=== PATIENT | male | born 1960 | race Caucasian/White ===

== ENCOUNTER 2022-11-22 09:37 | Outpatient (CLI) | payer OTHER | END 2022-11-22 09:38 | disposition home or self-care (01) | LOC: LABBT 09:37 | PROVIDERS: ATTEND Orthopaedic Surgery | DX: Z01.818 Encounter for other preprocedural examination (principal); M17.0 Bilateral primary osteoarthritis of knee | CPT/HCPCS: 71046; 93005; 93010 ==

== ENCOUNTER 2022-11-27 07:05 | Observation (INO) | payer OTHER ==
[2022-11-22 10:48] VITALS: BMI 37.3
[2022-11-22 11:46] LABS: Bilirubin Neg (Negative); Blood, Urine Negative (Negative); Clarity Clear (Clear); Glucose, Urine (Dipstick) Normal (Negative); Ketone, Urine Negative (Negative); Leukocyte Negative (Negative); Nitrite Negative (Negative); Protein, Urine (Dipstick) 30 mg/dl (Neg-Trace); Specific Gravity, Urine 1.015 (1.005-1.030); Urobilinogen Normal mg/dL (Less than 2)
[2022-11-22 12:06] LABS: #Basophils 0.1 10x3/uL (0.0-0.2); #Eosinphils 0.2 10x3/uL (0.0-0.5); #Monocytes 0.8 10x3/uL (0.0-1.1); #Neutrophils 5.9 10x3/uL (1.5-8.4); %Basophils 0.8 % (0.0-2.0); %Eosinophils 2.3 % (0.0-6.0); %Lymphocytes 22.4 % (18.0-47.0); %Monocytes 8.9 % (0.0-10.0); Hematocrit 39.4 % (38.8-50.0); Hemoglobin 13.1 g/dL (13.5-17.5); Mean Corpuscular HGB CONC 33.2 g/dL (32.0-36.0); Mean Corpuscular Hemoglobin 29.7 pg (27.0-33.0); Mean Corpuscular Volume 89.3 fl (81.2-95.1); Mean Platelet Volume 9.7 fl (7.4-10.4); Platelet Count 313 10x3/uL (150-450); RBC Distribution Width 12.7 % (11.5-14.5); Red Blood Cell (RBC) Count 4.41 10x6/uL (4.32-5.72); White Blood Cell (WBC) Count 9.1 10x3/uL (3.5-10.5)
[2022-11-22 12:20] LABS: Anion Gap 16 mmol/L (10-20); BUN (Urea Nitrogen) 18 mg/dL (8.4-25.7); Calc. Creatinine Clearance 0 mL/min (70-130); Calcium 9.5 mg/dL (7.8-10.44); Carbon Dioxide 24 mmol/L (23-31); Chloride 104 mmol/L (98-107); Estimated GFR 96; Glucose 97 mg/dL (80-115); Potassium 4.4 mmol/L (3.5-5.1); Sodium 140 mmol/L (136-145)
[2022-11-22 12:53] LABS: Prothrombin Time 10.4 sec (9.5-12.1)
[2022-11-27] MEDS ORDERED: fentaNYL 50 mcg/mL 1 mL Vial ONE ×5 (07:52→12:35)
[2022-11-27] MEDS ORDERED: Bupivacaine PF 0.5% 30 ML VIAL ONE ×2 (07:52→09:15)
[2022-11-27] MEDS ORDERED: Midazolam HCl 2 mg/2 ml Vial ONE (07:52)
[2022-11-27] MEDS ORDERED: Tranexamic Acid 1,000 MG/10 ML VIAL ONE (08:04)
[2022-11-27] MEDS ORDERED: Sodium Chloride 0.9% 100 ML ONE ×2 (08:04→09:31)
[2022-11-27] MEDS ORDERED: VANCOMYCIN 2 GRAM/500 ML BAG 2 GM in Premix Bag 1 BAG IVPB SCH (08:15)
[2022-11-27] MEDS ORDERED: Dexamethasone 20 MG/5 ML VIAL ONE (09:00)
[2022-11-27] MEDS ORDERED: Lidocaine 1% PF 5 ML VIAL ONE (09:00)
[2022-11-27] MEDS ORDERED: Bupivacaine HCl 0.5%/Epinephrine 1:200,000/PF 30 ml Vial ONE (09:00)
[2022-11-27] MEDS ORDERED: PROPOFOL 200 MG/20 ML VIAL ONE (09:00)
[2022-11-27] MEDS ORDERED: Ondansetron PF 4 MG/2 ML Vial ONE (09:00)
[2022-11-27] MEDS ORDERED: methylPREDNISolone Acetate 40 mg/ml Vial ONE (09:15)
[2022-11-27] MEDS ORDERED: Lidocaine 1% (PF) 30 ML VIAL ONE (09:15)
[2022-11-27] MEDS ORDERED: fentaNYL 50 mcg/mL 1 mL Vial SLOW IVP PRN (09:22)
[2022-11-27] MEDS ORDERED: Ondansetron PF 4 MG/2 ML Vial IVP PRN ×2 (09:30→09:54)
[2022-11-27] MEDS ORDERED: Promethazine HCl 25 MG/ML VIAL IM PRN ×2 (09:30→09:54)
[2022-11-27] MEDS ORDERED: Zolpidem Tartrate 5 MG TAB PO PRN ×2 (09:30→09:54)
[2022-11-27] MEDS ORDERED: HYDROcodone/Acetaminophen 10/325 mg Tablet PO PRN ×2 (09:30)
[2022-11-27] MEDS ORDERED: Ropivacaine 0.2% 550 ML 550 ML NERVE BLCK SCH (09:30)
[2022-11-27] MEDS ORDERED: traMADol HCl 50 MG TAB PO PRN ×2 (09:30)
[2022-11-27] MEDS ORDERED: CEFAZOLIN 2 GM VIAL ONE (09:31)
[2022-11-27] MEDS ORDERED: diphenhydrAMINE 25 MG CAP PO PRN ×2 (09:54→10:14)
[2022-11-27] MEDS ORDERED: Acetaminophen 325 MG TAB PO PRN (09:54)
[2022-11-27] MEDS ORDERED: Tranexamic Acid 1,000 MG in Sodium Chloride 0.9% 100 ML IVPB SCH (10:00)
[2022-11-27] MEDS ORDERED: Colchicine 0.6 MG TAB PO PRN (10:13)
[2022-11-27] MEDS ORDERED: HYDROcodone/Acetaminophen 10/325 mg Tablet ONE (15:47)
[2022-11-27] MEDS: Sodium Chloride 0.9% 1,000 ML IV SCH ×2 (16:14→20:26)
[2022-11-27] MEDS: Ketorolac Tromethamine 30 MG/ML VIAL IVP SCH ×2 (16:14→17:36)
[2022-11-27] MEDS: CEFAZOLIN 2 GM in Sodium Chloride 0.9% 100 ML IVPB SCH (17:36)
[2022-11-27] MEDS: metFORMIN XR 500 MG ER.TAB PO SCH (17:36)
[2022-11-27] MEDS: Aspirin 81 mg Enteric Coated Tablet PO SCH (20:44)
[2022-11-27] MEDS: Ferrous Gluconate 324 MG TAB PO SCH (20:44)
[2022-11-27] MEDS: Carvedilol 25 MG TAB PO SCH (20:44)
[2022-11-27] MEDS: Senokot S 8.6-50 MG TAB PO SCH (20:45)
[2022-11-27] MEDS ORDERED: Atorvastatin Calcium 20 MG TAB PO SCH (21:00)
[2022-11-27] MEDS ORDERED: traZODone HCl 50 MG TAB PO SCH (21:00)
[2022-11-28] MEDS: Ketorolac Tromethamine 30 MG/ML VIAL IVP SCH ×3 (00:17→11:21)
[2022-11-28] MEDS: CEFAZOLIN 2 GM in Sodium Chloride 0.9% 100 ML IVPB SCH (02:42)
[2022-11-28 05:37] LABS: Hematocrit 33.5 % (42.0-52.0); Hemoglobin 11.1 g/dL (14.0-18.0); Mean Corpuscular HGB CONC 33.1 g/dL (32.0-36.0); Mean Corpuscular Hemoglobin 30.4 pg (27.0-31.0); Mean Corpuscular Volume 91.8 fl (78.0-98.0); Mean Platelet Volume 9.4 fL (7.4-10.4); Platelet Count 266 10x3/uL (130-400); RBC Distribution Width 12.7 % (11.5-14.5); Red Blood Cell (RBC) Count 3.65 mill/uL (4.70-6.10); White Blood Cell (WBC) Count 20.4 10x3/uL (4.8-10.8)
[2022-11-28] MEDS: Sodium Chloride 0.9% 1,000 ML IV SCH (05:59)
[2022-11-28 06:37] LABS: #Monocytes 1.6 thou/uL (0.11-0.59); %Basophils 0.1 % (0.0-1.0); %Lymphocytes 6.9 % (21.0-51.0); %Monocytes 8.3 % (0.0-10.0); %Neutrophils 84.2 % (42.0-75.0); Hematocrit 31.5 % (42.0-52.0); Hemoglobin 10.5 g/dL (14.0-18.0); Mean Corpuscular HGB CONC 33.3 g/dL (32.0-36.0); Mean Corpuscular Hemoglobin 30.3 pg (27.0-31.0); Platelet Count 240 10x3/uL (130-400); RBC Distribution Width 12.9 % (11.5-14.5); Red Blood Cell (RBC) Count 3.46 mill/uL (4.70-6.10)
[2022-11-28] MEDS ORDERED: Allopurinol 300 MG TAB PO SCH (09:00)
[2022-11-28] MEDS ORDERED: Cholecalciferol 1,000 UNITS (25 MCG) TAB PO SCH (09:00)
[2022-11-28] MEDS ORDERED: Hydrochlorothiazide 25 MG TAB PO SCH (09:00)
[2022-11-28] MEDS ORDERED: Cyanocobalamin (Vitamin B-12) 1,000 MCG TAB PO SCH (09:00)
[2022-11-28] MEDS ORDERED: Aspirin Chewable 81 MG TAB PO SCH (09:00)
[2022-11-28] MEDS ORDERED: Multivitamin W/ Minerals 1 TAB PO SCH (09:00)
[2022-11-28] MEDS: Aspirin 81 mg Enteric Coated Tablet PO SCH (09:35)
[2022-11-28] MEDS: Senokot S 8.6-50 MG TAB PO SCH (09:35)
[2022-11-28] MEDS: Ferrous Gluconate 324 MG TAB PO SCH (09:35)
[2022-11-28] MEDS: metFORMIN XR 500 MG ER.TAB PO SCH (09:36)
[2022-11-28] MEDS: Carvedilol 25 MG TAB PO SCH (09:36)
[2022-11-28 10:34] VITALS: BP 148/75; TEMP 98
== END 2022-11-28 12:30 | disposition home or self-care (01) ==
LOC: SDC 07:05 → EDSTATUS 10:00 → SJJU 17:22
PROVIDERS: ADMIT Orthopaedic Surgery; ATTEND Orthopaedic Surgery
PROC: 0SRC0JZ Replacement of Right Knee Joint with Synthetic Substitute, Open Approach (ICD-10-PCS; principal; 2022-11-28)
PROC: 0S9D3ZZ Drainage of Left Knee Joint, Percutaneous Approach (ICD-10-PCS; 2022-11-28)
DX: M17.0 Bilateral primary osteoarthritis of knee (principal); M10.9 Gout, unspecified; I10 Essential (primary) hypertension; Z79.82 Long term (current) use of aspirin; Z87.891 Personal history of nicotine dependence; Z79.899 Other long term (current) drug therapy
CPT/HCPCS: 36415; 80048; 81003; 85025; 85027; 85610; 86850; 86900; 86901; 87081; A4306; C1776; J1030; J1100; J1885; J2001; J2250; J2405; J2704; J2795; J3010; J3370; J3490; J7030; S0020